=== PATIENT | male | born 1970 | race Caucasian/White ===

== ENCOUNTER 2021-10-30 22:23 | Emergency (ER) | payer BC, SELFPAY ==
[2021-10-30] VITALS (17 sets, daily range): BP systolic 126–175; BP diastolic 78–96; PULSE 78–111; RESP 13–22; TEMP 37.3; O2SAT 92–99
--- NOTE | 2021-10-30 22:15 | DI.RAD_ITS ---
Exam(s) XR ANKLE LT COMPLETE EXAM: XR ANKLE LT COMPLETE CLINICAL HISTORY: fall with deformity TECHNIQUE: 2D digital imaging was performed. Three views. COMPARISON: No exams were available for comparison FINDINGS: There is a fracture extending obliquely through the lateral malleolus the level of the ankle mortise. There are fracture fragments at the medial malleolus. No talar dome defect is seen. The talus is dislocated posteriorly and laterally with respect to the distal tibia. Incidental plantar calcaneal spur is noted. There is an ossicle adjacent to the base of the 5th metatarsal. IMPRESSION: Bimalleolar fracture with posterolateral dislocation of the talus. DATA REPOSITORY: RADIATION DOSE DELIVERED:
[2021-10-30] MEDS: HYDROmorphone 2 MG/ML VIAL 1 MG IVP (22:30)
--- NOTE | 2021-10-30 22:32 | ED.GENADUL_ITS ---
Discharge Plan Disposition Patient Disposition: HOME Condition: Stable Discharge Details Clinical Impression: Closed left ankle fracture Primary Care Provider: EmiliaLocal ED Provider: Fermin Leos Home Meds and New Rx's Prescriptions: No Action oxycodone 5 mg tablet 5 mg PO Q4H MDD 30mg PRN (Reason: pain) Qty: 18 0RF paroxetine HCl 10 mg Tablet 10 mg PO DAILY acetaminophen 500 mg tablet 1,000 mg PO TID Qty: 90 3RF celecoxib 200 mg capsule 200 mg PO BID PRN (Reason: pain) Qty: 60 1RF pantoprazole 40 mg tablet,delayed release (DR/EC) 40 mg PO DAILY Qty: 30 0RF Discharge Instructions Instructions: Ankle Fracture (ED) Additional Instructions: Please use the provided narcotic as needed for severe pain and discomfort. You may also use the prescribed ibuprofen along with [id number] acetaminophen as needed for mild to moderate pain. It is recommended that you keep the extremity elevated and use crutches for any mobility. You should remain off of the extremity until seen by orthopedist. You have been placed on a follow-up list to follow-up with local orthopedist for reassessment and consideration of further interventions as needed. If you have any severe uncontrollable pain or discomfort, loss of sensation or numbness or tingling to your toes, or severe discoloration of your extremity return immediately to the emergency department for reassessment. Referrals: [facility] [Provider Group] (Please call the office tomorrow morning for arrangement of follow-up appointment and reassessment) Discharge Data Discharge Date/Time-TO BE ENTERED AT DEPARTURE: 10/31/21 01:08 Medical Decision Making <Fermin Leos NP - Last Filed: 11/06/21 12:48> Patient presenting to the emergency department for chief complaint of left ankle injury. Patient states that he was walking outside when he had a mechanical trip and fall. Afterwards he was unable to walk and had severe deformity of his ankle so called EMS. Patient denies any other injury or trauma, denies loss of consciousness, denies any other associated symptoms. Physical exam shows a obvious deformity to the left ankle with lateral deviation approximately 90 degrees. Pulses and sensation are intact distal to injury. Will medicate patient with Dilaudid and perform radiological imaging for confirmation of fracture. Review of radiological imaging shows significant unstable ankle fracture at least bimalleolar component. Spoke to on-call orthopedist who requested attempt of the reduction and splinting. Discussed case with Dr. Lr who is agreeable to perform a conscious sedation while attempting closed reduction of the ankle. Patient was agreeable to close reduction of the ankle and emergent consent was obtained. Please see procedure note for uncomplicated procedure with patient tolerating procedure well. Will give patient limited narcotics to go home and place patient on crutches. Patient was placed on the orthopedic follow-up list but of notation is that patient is planning to travel to return home to [place] in 7 days. After discussion of diagnosis and plan of care patient has no further needs, questions, or concerns and states clear understanding to return to the emergency department for any worsening symptoms. This documentation was generated using [employer] system, please disregard any oddities of phrase or misspellings. HPI <Fermin Leos NP - Last Filed: 11/06/21 12:48> General Mode of arrival: EMS . Date/Time Provider Initiated Documentation: 10/30/21 22:23 . Limitations to Documentation: no limitations . Information obtained by: patient, EMS and RN notes reviewed . History of Present Illness 51 year old M presents to the emergency department with the chief complaint of Mechanical fall with left ankle, described as severe, with intensity rated at 9. Quality is described as sharp, and is localized to the left and lower extremity. Patient reports no radiation. Patient started experiencing this minute(s) (30) and it has been constant. No relieving factors improve symptom(s), No exacerbating factors reported . Patient notes no other symptoms.. Patient did receive the following treatments prior to arrival, other (iv Tylenol per EMS) Related Data Home Medications Medication Instructions Recorded Confirmed paroxetine HCl 10 mg tablet 10 mg PO DAILY 11/01/21 11/02/21 acetaminophen 500 mg tablet 1,000 mg PO TID #90 tabs 11/02/21 celecoxib 200 mg capsule 200 mg PO BID PRN pain #60 caps 11/02/21 pantoprazole 40 mg tablet,delayed 40 mg PO DAILY #30 tabs 11/02/21 release oxycodone 5 mg tablet 5 mg PO Q4H PRN pain #18 tabs 11/04/21 Previous Rx's Medication Instructions Recorded acetaminophen 500 mg tablet 1,000 mg PO TID #90 tabs 11/02/21 celecoxib 200 mg capsule 200 mg PO BID PRN pain #60 caps 11/02/21 pantoprazole 40 mg tablet,delayed 40 mg PO DAILY #30 tabs 11/02/21 release oxycodone 5 mg tablet 5 mg PO Q4H PRN pain #18 tabs 11/04/21 Allergies Allergy/AdvReac Type Severity Reaction Status Date / Time ibuprofen AdvReac Intermediate Other (See Unverified 11/02/21 10:19 Comment) MSG Allergy Mild Other (See Uncoded 11/02/21 10:19 Comment) General Stated Complaint: Orthopedic ANURADHA: 3 Review of Systems <Fermin Leos NP - Last Filed: 11/06/21 12:48> All systems reviewed & are unremarkable except as noted in HPI and below Musculoskeletal Musculoskeletal: Reports as per HPI, Reports joint swelling, Reports limited range of motion, Denies numbness and Denies tingling Integumentary/Breasts Skin/Breast: Denies wounds Neurologic Neurologic: Denies numbness and Denies tingling PFSH <Fermin Leos NP - Last Filed: 11/06/21 12:48> All Active Problems (Updated 11/02/21 @ 10:28 by Richie Sanchez MD) Closed fracture dislocation of left ankle (Acute) Closed left ankle fracture (Acute) Medical History History of anxiety History of dog bite History of gastric ulcer Per pt. stated he was bit by a dog and place on NSAIDS which gave him a gastric ulcer last spring. Kidney stones Surgical History History of cystoscopy History of esophagogastroduodenoscopy (EGD) History of lithotripsy Hx of appendectomy Social History Smoking/Tobacco Use Status: Never Smoking risk assessment performed?: Yes Alcohol Intake: never Drug use: Daily Substance use type: marijuana Details: normally uses marijuana once daily. last use reported as 10/30/21 Do you feel safe at home: Yes Do you feel safe in your relationship?: Yes Exam <Fermin Leos NP - Last Filed: 11/06/21 12:48> Const General: cooperative and not ill appearing Orientation: alert, awake and oriented x3 Resp Effort & Inspection: normal respiratory effort, able to speak in complete sentences and no respiratory distress Cardio Rate: regular rate Rhythm: regular rhythm Skin General skin exam: no rashes or lesions noted Neuro General: patient alert, patient awake, patient oriented x3, moves all extremities and no focal motor deficits Sensory Exam: no sensory deficits noted Extrem General: normal exam except as noted Left lower extremity: ankle Details: abnormal to inspection Details: other (Obvious deformity with lateral deviation), tenderness, swelling and abnormal ROM Details: with range as follows (none); no abrasions and no lacerations Course <Fermin Leos NP - Last Filed: 11/06/21 12:48> Vital Signs Vital signs: Vital Signs Temperature 37.3 C 10/30/21 22:20 Pulse 90 10/30/21 22:20 Respiratory Rate 18 10/30/21 22:20 Blood Pressure 149/89 H 10/30/21 22:20 Pulse Oximetry 99 10/30/21 22:20 Temperature 37.3 C 10/30/21 22:20 Temperature Source Temporal Artery Scan 10/30/21 22:20 Pulse 90 10/30/21 22:20 Respiratory Rate 18 10/30/21 22:20 Respiratory Effort Non-Labored 10/30/21 22:26 Blood Pressure 149/89 H 10/30/21 22:20 Blood Pressure Position Supine 10/30/21 22:20 Pulse Oximetry 99 10/30/21 22:20 Oxygen Delivery Method Room Air 10/30/21 22:20 Oxygen Flow Rate 0 10/30/21 22:20 Pain Level 9 10/30/21 22:20 Procedures <Fermin Leos NP - Last Filed: 11/06/21 12:48> Orthopedic Fracture Reduction Fracture #1: Time Out Performed: Yes Side: left Fracture Reduction Location: tibia and fibula Analgesia: procedural sedation Technique: direct manipulation Post-reduction neuro exam: intact Post-reduction vascular exam: intact Splint Applied: Yes Patient Tolerated Procedure: well and no complications <Giuseppe Lr DO - Last Filed: 10/31/21 00:15> Procedural Sedation Indication: fracture/dislocation reduction ASA Class: I Time of Last PO Intake: 18:00 Preparation: court monitor applied, pulse oximeter, capnometry used, supplemental O2 applied, suction/airway equipment at bedside and IV secured Ketamine: IV Ketamine dose (mg): 100 Patient Tolerated Procedure: well and no complications Complications: none
[2021-10-30] MEDS: HYDROmorphone 2 MG/ML VIAL 0.5 MG IVP (23:00)
--- NOTE | 2021-10-30 23:15 | DI.VRAD_ITS ---
PROCEDURE INFORMATION: Exam: XR Left Ankle Exam date and time: 10/30/2021 10:23 PM Age: 51 years old Clinical indication: Pain; Ankle; Left; Patient HX: Fall with deformity TECHNIQUE: Imaging protocol: Radiologic exam of the Left ankle. Views: 3 or more views. COMPARISON: No relevant prior studies available. FINDINGS: Bones/joints: There is a fracture dislocation seen at the ankle joint. The tibia is dislocated medially from the talus. There is a laterally displaced oblique fracture of the fibula with approximately 3.6 cm overlap in fracture fragments. The tip of the fibula is displaced laterally. A small osseous fragment is seen inferior to the tibia, possibly an avulsion fracture (image 1, series 3). Soft tissues: Subcutaneous edema noted. IMPRESSION: Severe fracture-dislocation of the ankle joint as described. Dictated and Authenticated by: Roseline Daniels MD. Ordering:ADRIANA Christensen MD
--- NOTE | 2021-10-30 23:45 | DI.RAD_ITS ---
Exam(s) XR ANKLE LT COMPLETE EXAM: XR ANKLE LT COMPLETE CLINICAL HISTORY: post reduction TECHNIQUE: 2D digital imaging was performed. Three views. COMPARISON: CR,XR XR ANKLE LT COMPLETE from 10/30/2021 FINDINGS: A cast has been placed. There has been significant improvement in the alignment of the distal fibular fracture. The dislocation has been reduced.. IMPRESSION: Improved alignment post reduction. DATA REPOSITORY: RADIATION DOSE DELIVERED:
[2021-10-30] MEDS: Ketamine 500 MG/10 ML VIAL 100 MG IVP (23:46)
[2021-10-31] VITALS (16 sets, daily range): BP systolic 120–157; BP diastolic 67–84; PULSE 91–104; RESP 12–18; O2SAT 91–96
--- NOTE | 2021-10-31 00:48 | DI.VRAD_ITS ---
PROCEDURE INFORMATION: Exam: XR Left Ankle Exam date and time: 10/30/2021 11:54 PM Age: 51 years old Clinical indication: Injury or trauma; Fall; Fracture, traumatic; Displaced and other: FX, post reduction; Fibula and tibia; Bone in left fibula fracture not specified; Lower end of tibia; Injury date: 10/30/21 TECHNIQUE: Imaging protocol: Radiologic exam of the Left ankle. Views: 3 or more views. COMPARISON: CR XR ANKLE LT COMPLETE 10/30/2021 10:23 PM FINDINGS: Tubes, catheters and devices: The patient is status post external fixation of the fracture dislocation of the left ankle. Bones/joints: There is improved alignment of the talus and the tibia. The oblique fracture of the fibula also a demonstrates improved alignment. A small fragment is seen medial to the tibial metaphysis, which may represent an avulsion injury. Soft tissues: Normal. IMPRESSION: Status post external fixation of the left ankle. Improved alignment of the fracture site. Dictated and Authenticated by: Roseline Daniels MD. Ordering:ADRIANA Christensen MD
--- NOTE | 2021-10-31 01:31 | NUR.NOTE ---
Nursing Note:Conscious sedation done per Dr. Lr and Mervin Leos; RT and this nurse at bedside. Pt given 100 mg ketamine IV; Ankle re-aligned and stabilized per Mervin. Pt tolerated procedure well. Awoke after medication. Instructions reviewed with pt and .
== END 2021-10-31 01:08 | disposition home or self-care (01) ==
PROVIDERS: Emergency Provider Nurse Practitioner Family
DX: S82.842A Displaced bimalleolar fracture of left lower leg, initial encounter for closed fracture (principal); W01.0XXA Fall on same level from slipping, tripping and stumbling without subsequent striking against object, initial encounter
CPT/HCPCS: 27752; 96374; 96376; 73610

== ENCOUNTER 2021-10-31 11:25 | Outpatient (CLI) | payer BC, SELFPAY ==
[2021-10-31 11:59] LABS: Source Nasal/Nares
[2021-10-31 15:36] LABS: COVID-19 PCR Negative (Negative)
== END 2021-10-31 11:26 | disposition home or self-care (01) ==
LOC: LBO 11:25
PROVIDERS: Visit Provider Student in an Organized Health Care Education/Training Program
DX: Z20.822 Contact with and (suspected) exposure to COVID-19 (principal); Z01.818 Encounter for other preprocedural examination
CPT/HCPCS: 87635

== ENCOUNTER 2021-11-02 09:44 | Day surgery (SDC) | payer BC, SELFPAY ==
[2021-11-02] VITALS (9 sets, daily range): BP systolic 116–148; BP diastolic 61–94; PULSE 51–90; RESP 14–20; TEMP 36.4–36.9; O2SAT 94–100; BMI 31.6
--- NOTE | 2021-11-02 10:12 | PDOC.DSDIS_ITS ---
Discharge Plan Disposition Patient Disposition: HOME Condition: Good Discharge Details Reason For Visit: ORIF L ankle Attending Provider: Richie Sanchez Primary Care Provider: No,Local Home Meds and New Rx's Prescriptions: New acetaminophen 500 mg tablet 1,000 mg PO TID Qty: 90 3RF oxycodone 5 mg tablet 5 mg PO Q8H MDD 15mg PRN (Reason: pain) Qty: 10 0RF celecoxib 200 mg capsule 200 mg PO BID PRN (Reason: pain) Qty: 60 1RF pantoprazole 40 mg tablet,delayed release (DR/EC) 40 mg PO DAILY Qty: 30 0RF Continued paroxetine HCl 10 mg Tablet 10 mg PO DAILY Discontinued oxycodone 5 mg tablet 5 mg PO Q6H MDD 20mg Qty: 12 0RF acetaminophen 500 mg Tablet 500 mg PO DIRECTED PRN No Action oxycodone 5 mg Tablet 5 mg PO DIRECTED Discharge Instructions Additional Instructions: Ankle ORIF Discharge Instructions Activity: You are NON WEIGHT BEARING. You should keep the leg elevated as much as possible. You may wiggle your toes and move your hip and knee. Dressings: You should keep your splint clean and dry. Do NOT get wet or dirty. If you have issues with your splint, please call the office at [phone] or the hospital after hours. After 10-14 days you may remove the splint and replace it with the fracture walking boot provided. If the splint is too tight, you may remove the splint early and wear the fracture waking boot. After the first two weeks you may slowly start putting weight on the foot within the fracture walker boot. Medications: - You should take Tylenol around the clock for baseline pain. You also have been prescribed Celebrex which is an anti-inflammatory but should avoid the stomach issues. - You have been prescribed a stronger narcotic for breakthrough pain. - You should take a Baby Aspirin (81mg) twice a day for blood clot prevention. Follow-up: 2-3 weeks for suture removal, wound check, and x-ray Stand Alone Forms: Anesthesia Discharge Inst., Anes.Nerve Block Instructions, Crutch Training Instructions, Sussy Martins (DSU) Referrals: Richie Sanchez MD [ [facility] STAFF PHYSICIAN] - Equipment/Supplies: Non-Weight Bearing Crutches Activity:: Elevate Remove Dressings/Wound Care:: Do Not Remove Shower/Bathe:: Cover Diet:: As Tolerated Discharge Orders Discharge Orders: Discharge Order (Routine); Ordered 11/02/21 Ordered By: Domo Booth
--- NOTE | 2021-11-02 10:22 | W.PM.HP.N ---
Date of service: 11/02/21 Time of Service: 10:24 Assessment and Plan Assessment and plan (1) Closed fracture dislocation of left ankle: Status: Acute Assessment and plan: Gildardo is a 51-year-old active male who has a left ankle fracture dislocation. The fracture primarily involves the distal fibula with comminution. There is obvious complete disruption of the medial ligamentous complex with avulsion from the distal aspect of the medial tibia. There is also likely syndesmotic disruption given the amount of displacement. I discussed treatment options with Gildardo over the phone initially once again today. Given the fracture dislocation I recommended operative fixation. Due to the comminution about the distal tibia I would also use a specialized precontoured plate which would be thicker and more sturdy. He will be traveling back to [place] starting next week. We discussed the risk of blood clot. However, after further discussion of treatment options we will proceed with aspirin the frequent stops, sides, and ankle pumps. I have further discussed risk of the surgery to include bleeding, infection, pain, stiffness, nonunion, nonunion, heart prominence, hardware failure, wound dehiscence or wound issues healing. Despite these risk, he elects to proceed with surgery. I will provide him with a fracture walker boot to be applied after 10 to 14 days. He should seek care back in [place] for removal of sutures and follow-up x-ray. History of Present Illness History of Present Illness Chief Complaint: Left Ankle Fracture Narrative: Gildardo is a 51-year-old who slipped on a rock 3 days ago on the . He had immediate pain and deformity. He is seen in the emergency department diagnosed with an ankle fracture dislocation. He was reduced and placed in a splint. He continues have some pain about the left ankle. He has been taking oxycodone with some marginal improvement. He denies numbness or tingling. He denies any issues with this left leg previously. He has had vein surgery both of his legs there is no sequela on the left side. No preinjury pain about the left ankle or foot. No significant medical history. COVID-19 negative. Review of Systems All systems reviewed & are unremarkable except as noted in HPI and below PFSH All Active Problems (Updated 11/02/21 @ 10:28 by Richie Sanchez MD) Closed fracture dislocation of left ankle (Acute) Closed left ankle fracture (Acute) Medical History History of anxiety History of dog bite History of gastric ulcer Per pt. stated he was bit by a dog and place on NSAIDS which gave him a gastric ulcer last spring. Kidney stones Surgical History History of cystoscopy History of esophagogastroduodenoscopy (EGD) History of lithotripsy Hx of appendectomy Social History Smoking/Tobacco Use Status: Never Smoking risk assessment performed?: Yes Alcohol Intake: never Drug use: Daily Substance use type: marijuana Details: normally uses marijuana once daily. last use reported as 10/30/21 Do you feel safe at home: Yes Do you feel safe in your relationship?: Yes Meds Allergies and Home Medications Allergies Allergy/AdvReac Type Severity Reaction Status Date / Time ibuprofen AdvReac Intermediate Other (See Unverified 11/02/21 10:19 Comment) MSG Allergy Mild Other (See Uncoded 11/02/21 10:19 Comment) Home Medications Medication Instructions Recorded Confirmed Type paroxetine HCl 10 mg tablet 10 mg PO DAILY 11/01/21 11/02/21 History acetaminophen 500 mg tablet 1,000 mg PO TID #90 tabs 11/02/21 Rx oxycodone 5 mg tablet 5 mg PO PRN 11/02/21 History oxycodone 5 mg tablet 5 mg PO Q8H PRN pain #10 tabs 11/02/21 Rx Exam Const General: cooperative, healthy appearing, comfortable and no acute distress Resp Auscultation: clear to auscultation bilaterally Cardio Rate: regular rate Rhythm: regular rhythm Extrem Other: Evaluation of the left leg is slightly obscured due to the splint. No significant swelling appreciated. Calf is soft. Sensation intact to light touch over the deep and superficial peroneal nerve and tibial nerve. He is able to actively flex and extend the great toe. No pain to palpation about the knee. Results Imaging Imaging Studies: X-ray of the left ankle demonstrates an ankle fracture dislocation with a comminuted fracture the lateral malleolus and complete disruption of the medial ligamentous complex with lateral translation of the talus with posterior displacement as well. There is a small osseous fragment seen over the medial side, likely an avulsion from the tibia. Postreduction x-rays were also obtained which show appropriate reduction of the ankle fracture. Last Vital Signs Temp 36.9 C 11/02/21 10:10 Pulse 90 11/02/21 10:10 Resp 20 11/02/21 10:10 BP 148/94 H 11/02/21 10:10 Pulse Ox 97 11/02/21 10:10
[2021-11-02] MEDS: Lactated Ringers 1,000 ML 80 ML IV (10:26)
--- NOTE | 2021-11-02 10:36 | W.ANESPRE ---
General Info Date of Service Date Performed: 11/02/21 Height: 5 ft 10 in Weight: 100 kg Body Mass Index (BMI): 31.6 Surgical Procedure: Operation Date: 11/02/21 11:10 Proposed Procedure Side Surgeon p Ankle ORIF Left Richie Sanchez MD Meds Allergies and Home Medications Allergies Allergy/AdvReac Type Severity Reaction Status Date / Time ibuprofen AdvReac Intermediate Other (See Unverified 11/02/21 10:19 Comment) MSG Allergy Mild Other (See Uncoded 11/02/21 10:19 Comment) Home Medication Medication Instructions Recorded paroxetine HCl 10 mg tablet 10 mg PO DAILY 11/01/21 acetaminophen 500 mg tablet 1,000 mg PO TID #90 tabs 11/02/21 oxycodone 5 mg tablet 5 mg PO DIRECTED 11/02/21 oxycodone 5 mg tablet 5 mg PO Q8H PRN pain #10 tabs 11/02/21 Current Visit Medications: Current Medications Generic Name Dose Route Start Last Admin Trade Name Freq PRN Reason Stop Dose Admin Acetaminophen 650 mg 11/02/21 10:05 Acetaminophen 325 Mg Tab PO Q4H PRN PRN Ringer's Solution 1,000 mls @ 80 mls/hr 11/02/21 06:00 11/02/21 10:26 IV 12/01/21 23:59 80 mls/hr INFUSION DIMPLE Administration Cefazolin Sodium 2,000 mg/ 100 mls @ 200 mls/hr 11/02/21 06:00 Sodium Chloride IVPB 11/02/21 18:00 PREOP DIMPLE IV Miscellaneous Supplies 1 each 11/02/21 06:00 Iv Access IV 12/01/21 23:59 DIRECTED DIMPLE Oxycodone HCl 5 mg 11/02/21 10:05 Oxycodone 5 Mg Tab PO Q3H PRN PRN Pain Sodium Chloride 0 ml 11/02/21 06:00 Normal Saline Flush 10 Ml Syr IV 12/01/21 23:59 PRN PRN Sodium Chloride 0 ml 11/02/21 06:00 Normal Saline 10 Ml Vial IJ 12/01/21 23:59 DIRECTED PRN Sterile Water 0 ml 11/02/21 06:00 Water,Injection,Sterile 10 Ml Vial IJ 12/01/21 23:59 DIRECTED PRN PFSH Active Problems Active Problems: Problem Status Onset Code Closed fracture dislocation of left ankle S82.892A Closed left ankle fracture S82.892A Medical History Medical History History of anxiety History of dog bite History of gastric ulcer Per pt. stated he was bit by a dog and place on NSAIDS which gave him a gastric ulcer last spring. Kidney stones Surgical History Surgical History History of cystoscopy History of esophagogastroduodenoscopy (EGD) History of lithotripsy Hx of appendectomy Tobacco Smoking/Tobacco Use Status: Never Alcohol Alcohol Intake: never Substance Use Substance use: Daily Substance use type: marijuana Details: normally uses marijuana once daily. last use reported as 10/30/21 Vital Signs and Lab Results Vital Signs Most Recent Vital Signs in EMR: Most Recent Vital Signs Temp Pulse Resp BP Pulse Ox 36.9 C 90 20 148/94 H 97 11/02/21 10:10 11/02/21 10:10 11/02/21 10:10 11/02/21 10:10 11/02/21 10:10 Lab Results Blood Type / Crossmatch: No Data to Display Complete Blood Count: No Data to Display Complete Metabolic Panel: No Data to Display Liver Function Panel: No Data to Display Coagulation Panel: No Data to Display Cardiac Panel: No Data to Display Arterial Blood Gas: No Data to Display Venous Blood Gas: No Data to Display Pancreas Panel: No Data to Display Thyroid Panel: No Data to Display Infectious Disease: Coronavirus (COVID-19)(PCR) Negative (Negative) 10/31/21 11:28 Coronavirus 2019 Source Nasal/Nares 10/31/21 11:28 Blood Cultures: No Data to Display Toxicology Panel: No Data to Display Anesthesia Assessment and Plan Anesthesia History Personal History: No History of Anesthesia Complications Family History: No Family History of Anesthesia Complications Exercise Tolerance Exercise Tolerance: Metabolic Equivalents>4 Pertinent Negatives Pertinent Negatives: No Symptoms of GERD, No Major Cardiovascular Symptoms or Complaints and No Major Pulmonary Symptoms or Complaints Cardiac & Pulmonary Exam Cardiac Exam: Normal S1/S2 Heart Sounds Pulmonary Exam: Clear Bilateral Breath Sounds Implantable Cardiac Device Does patient have a Pacemaker or an ICD?: No Airway Exam Known Difficult Airway: No Mallampati Class: 4 Mouth Opening: Narrow (< 3cm) Thyromental Distance: Greater than 3 cm Neck Range of Motion: Full ROM Neck Circumference: Thick Teeth Condition: Normal Dentition ASA Classification ASA Score: ASA 2 Emergency Case?: No NPO Status NPO Status: NPO Clears >2 hours, Solids >8 hours Anesthesia Plan Resuscitation Status: Full Code Anesthesia Technique: General Anesthesia Airway Planned: Endotracheal Tube Pain Management: Surgeon and patient request nerve block Monitors Used: Standard Monitors
--- NOTE | 2021-11-02 10:45 | DI.RAD_ITS ---
Exam(s) XR ANKLE LT 2V EXAM: XR ANKLE LT 2V CLINICAL HISTORY: Closed fracture dislocation of left ankle. TECHNIQUE: 2D and realtime digital imaging was performed. COMPARISON: CR,XR XR ANKLE LT COMPLETE from 10/30/2021 FINDINGS: Fluoroscopy was provided for Dr. Sanchez in the OR. Hard copy images show placement a lateral malle olar fixation plate and mortise screw. Ankle mortise appears congruent. Please see procedure note for details. Fluoro time 48.1 seconds RADIATION DOSE DELIVERED: dasia Valencia=1.87 mGy
[2021-11-02] MEDS: ceFAZolin 2,000 MG in Normal Saline 100 ML 200 MG IVPB (11:36)
--- NOTE | 2021-11-02 11:59 | ANES.NERVE_ITS ---
Nerve Block Single Injection Procedure Date and Time Date Performed: 11/02/21 Procedure Start: 11:05 Location Where Procedure Performed Procedure Location: Day Surgery Unit Reason Performed: Postoperative Analgesia Requesting Provider: Richie Sanchez Timeout Performed Timeout Performed: Yes Monitoring Used ECG, Blood Pressure, SpO2 and See EMR for corresponding vital signs Sterility Sterility: Hand Hygiene, Surgical Cap, Surgical Mask, Sterile Gloves and Chlorhexidine Sedation Given During Procedure Sedation Given (Indicate Dose Given): Versed IV Dose:: 2mg and Fentanyl IV Dose:: 100mcg Patient Mental Status Patient Mental Status: Sedate with meaningful communication Nerve Block 1st Nerve Block: Laterality: Left Block Type: Adductor Canal Needle / Catheter Used: 100mm SonoPlex II Local Anesthetic Bolus (Indicate Dose Given): Lidocaine used for local infiltration of skin, Injected in 3-5ml increments after negative blood aspiration and Bupivacaine 0.25% Dose:: 10mL Additives (Indicate Dose Given): Other Medication/Route/Dose:: Precedex 10mcg Ultrasound: Sterile probe cover and gel used Ultrasound Image Saved?: Yes Nerve Stimulator: Not Used Paresthesia: None Procedure Tolerated: No Complications Procedure Outcome: Successful Performed By: Ese Weller 2nd Nerve Block: Laterality: Left Block Type: Popliteal Sciatic Needle / Catheter Used: 100mm SonoPlex II Local Anesthetic Bolus (Indicate Dose Given): Lidocaine used for local infiltration of skin, Injected in 3-5ml increments after negative blood aspir ation and Bupivacaine 0.375% Dose:: 30mL Additives (Indicate Dose Given): Other Medication/Route/Dose:: Precedex 40mcg Ultrasound: Sterile probe cover and gel used Ultrasound Image Saved?: Yes Nerve Stimulator: Not Used Paresthesia: None Procedure Tolerated: No Complications Procedure Outcome: Successful Performed By: Ese Weller
[2021-11-02] MEDS: Bupivacaine 0.25% Pres-Free 30 ML VIAL (12:12)
--- NOTE | 2021-11-02 14:25 | W.ANESPOSTOP ---
Postoperative Evaluation Date, Time and Location Date Performed: 11/02/21 Time Performed: 14:20 Patient Location: Day Surgery Unit Vital Signs Most Recent Imported Vital Signs: Most Recent Vital Signs Temp Pulse Resp BP Pulse Ox 36.5 C 58 L 17 124/66 95 11/02/21 14:06 11/02/21 14:06 11/02/21 14:06 11/02/21 14:06 11/02/21 14:06 Pain Score Most Recent Pain Score: Most Recent Pain Score Pain Level 0 11/02/21 14:06 Assessment Mental Status: Awake (Alert & Oriented to Patient Baseline) Airway and Respiratory Function: Patent airway with normal (patient baseline) respiratory exam Cardiovascular Function: Hemodynamically Stable Hydration Status: Adequately Hydrated Nausea & Vomiting: No Nausea or Vomiting Pain: Pt. Denies Any Pain Peripheral Nerve Block: Regional nerve block not resolved at time of post operative discharge
--- NOTE | 2021-11-02 20:03 | W.PM.OP ---
Date of service: 11/02/21 Time of Service: 13:30 Operative Note Operative Note DATE OF PROCEDURE: 11/02/21 PRE-OP DIAGNOSIS: Left Bimalleolar Equivalent Ankle Fracture POST-OP DIAGNOSIS: same PROCEDURE: Open Reduction and Internal Fixation of Left Ankle - Distal Fibula and Syndesmotic Fixation SURGEON: Richie Sanchez [employer] SUPERINTENDENT: Domo Booth ANESTHESIA TYPE: General LMA/ETT Refer to Anesthesia Record ESTIMATED BLOOD LOSS: 100 PATHOLOGY: none sent TOURNIQUET TIME: 0 COMPLICATIONS: None Patient was transported to: PACU Patient's condition: stable Indications: Gildardo is a 51 yo male who presented to the Emergency Department after a fall. X-rays confirmed the diagnosis of a ankle fracture dislocation. I reviewed the possible treatment options and given the fracture, I recommended operative fixation. I discussed the technical details of the surgery. I reviewed the risks such as bleeding, infection, pain, stiffness, malunion, nonunion, hardware prominence, hardware faiilure, malrotation, damage to nerves and vessels, blood clot. Despite these risks, he agreed to proceed. Findings: There was a comminuted fracture of the distal fibula with a primary low, short oblique fracture with some posterior comminution. The 2 main fracture fragments were able to be lagged together and a precontoured variable angle plate was then applied. The syndesmosis was clearly disrupted and therefore syndesmotic fixation was performed with [employer] Fibulink. Procedure Description: Gildardo was greeted in the preoperative area. Consent was previously reviewed and signed. Regional anesthesia was provided initially in the day surgery unit before proceeding back to the operating room. Once in the operating room, general anesthesia was administered. The patient was transferred to the fracture table in the supine position. He was positioned in the supine position with the operative side placed onto a bone foam ramp. All bony prominences were well padded. Arms were placed out to the side, padded, and secured. Prophylactic antibiotics, Cefazolin 2 grams, was given for prophylactic antibiotics. A timeout was performed for safe surgery. The left leg was prepped with Chloraprep. The leg was draped with a stockinette and extremity drape. The ankle was still reduced on initial preoperative x-rays with no significant gapping of the medial clear space therefore my attention was taken laterally to the fibula fracture. A longitudinal incision was made overlying the middle?posterior border of the fibula. Incision was taken through the skin only. Blunt dissection was carried down to the deeper layers. No branches of the superficial peroneal nerve were encountered. The fracture was evident and the periosteum over the lateral fibula was incised and elevated with a enamorado elevator and Bovie electrocautery. I now had visualization of the lateral fracture fragments which showed a primary short oblique fracture just above the level of the joint surface with some comminuted fracture extending posteriorly and superiorly. The posterior?superior extension did not destabilize the 2 main fracture fragments. Therefore, I reduced this main fracture line and held with a clamp. This appeared to be an anatomic reduction and appeared adequate on the x-ray. I then lagged the fracture with a 3.5 millimeter screw. This had excellent purchase and fixation. Once this was lagged, the clamps were removed and the fracture is stable despite the superior extension of this posterior fracture fragment line. Therefore, I selected a variable-angle plate which fit appropriately to the fibula. There is held in position and a single nonlocking 3.5 millimeter screw was placed into the sliding hole. Plate was formally positioned and held in place as for locking screws were placed in the distal fibular fragment. I then continue to place 2 additional nonlocking screws proximally. One of the drill sites was placed into the locking hole location and therefore this was converted to a locking screw to avoid to drill holes. This had excellent fixation up on the proximal portion of the fibula. X-ray was obtained and showed anatomic reduction of the fibula. The posterior?superior extension was seen on the lateral view. I did place a suture tape cerclage around the top portion with minimal effect. It was not unstable and was not further pursued. Stress view did show significant widening of the syndesmosis with external rotation stress. Therefore I did proceed with syndesmotic fixation. Given an adequate reduction of the fibula the foot was held in neutral position. Starting with a K wire, I placed a K wire across the tibia from the fibula and an approximate 30 degree posterior to anterior angle and approximate 2 cm above the tibial plafond. This was advanced into the medial side of the tibia. I then overdrilled the K wire using a step drill from the Fibulink system. A screw was then placed into the lateral aspect of the tibia. Using the large collar, the Fibulink was deployed and engaged. This was tightened down until there was some mild resistance. Range of motion was checked. X-ray was also utilized with the foot maximal dorsiflexion and external rotation to show no gapping of the syndesmosis. Final x-rays were obtained. The wound was thoroughly irrigated. Deep and subcutaneous tissues were injected with 0.2 Eldridge ropivacaine. The fascia overlying the plate was then closed with a 0 Vicryl. Deep tissues were closed with 2-0 and 3-0 Vicryl. The skin was closed with 3-0 nylon. The wound was dressed with Xeroform, 4 x 4's, Webril. He was placed into a short posterior splint. At the end of the case, all counts were correct. Gildardo tolerated the procedure well without known complication and was taken to the PACU for recovery.
== END 2021-11-02 15:20 | disposition home or self-care (01) ==
PROVIDERS: Visit Provider Student in an Organized Health Care Education/Training Program
PROC: (CPT 27792; principal; 2021-11-02 11:00)
DX: S82.62XA Displaced fracture of lateral malleolus of left fibula, initial encounter for closed fracture (principal); S93.432A Sprain of tibiofibular ligament of left ankle, initial encounter; W18.41XA Slipping, tripping and stumbling without falling due to stepping on object, initial encounter
CPT/HCPCS: 27792; 27829; 76942; 73600; J0690; J1100; J1885; J2250; J2405; J2704; J3010